=== PATIENT | female | born 2000 | race Caucasian/White ===

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

== ENCOUNTER → 2019-02-11 | Outpatient (CLI) | payer BC ==
--- NOTE | 2019-02-12 01:15 | REP ---
Clinical: Right ankle pain . Technique: AP, lateral, bilateral oblique views. Findings: No acute fracture or dislocation. Skeletal structures and joint spaces are intact and normal. Ankle mortise appears stable. No subcutaneous emphysema or radiodense foreign body. Impression: Normal right ankle radiograph series. Electronically Signed by Jesus Gabriel MD 02/12/2019 01:07 A
== END ==
LOC: M SMT 15:29
PROVIDERS: ATTEND Physician Assistant
DX: M79.671 Pain in right foot (principal)

== ENCOUNTER → 2019-03-09 | Outpatient (CLI) | payer BC ==
[2019-03-09 10:55] LABS: BASO % 0.3 % (0.0-1.0); EOS # 0.1 10^3/uL (0.0-0.50); HEMATOCRIT 38.9 % (36.0-47.0); HEMOGLOBIN 12.4 g/dl (12.0-15.5); LYMPH # 2.2 10^3/uL (1.5-6.5); LYMPH % 27.3 % (24.0-44.0); MEAN CORPUSCULAR HEMOGLOBIN 28.1 pg (27.0-33.0); MEAN CORPUSCULAR HGB CONC 31.9 g/dl (32.0-36.5); MONO # 0.6 10^3/uL (0.0-0.8); MONO % 7.2 % (0.0-5.0); NEUTROPHILS # 5.1 10^3/uL (1.8-7.7); NEUTROPHILS % 63.8 % (36.0-66.0); PLATELET COUNT, AUTOMATED 282 10^3/uL (150-450); RED BLOOD COUNT 4.42 10^6/uL (4.00-5.40)
[2019-03-09 11:09] LABS: ALBUMIN 3.1 GM/DL (3.2-5.2); ALT/SGPT 32 U/L (12-78); BILIRUBIN,TOTAL 0.3 MG/DL (0.2-1.0); BLOOD UREA NITROGEN 9 MG/DL (7-18); CALCIUM LEVEL 8.9 MG/DL (8.5-10.1); CARBON DIOXIDE LEVEL 28 MEQ/L (21-32); CHLORIDE LEVEL 106 MEQ/L (98-107); CHOLESTEROL LEVEL 142 MG/DL (<200); CHOLESTEROL RISK RATIO 2.629 (<5); CREATININE FOR GFR 0.89 MG/DL (0.55-1.30); FREE T4 1.07 NG/DL (0.78-1.33); GLUCOSE, FASTING 98 MG/DL (70-100); HDL CHOLESTEROL 54 MG/DL (>40); LDL CHOLESTEROL 65 MG/DL (<100); NON-HDL-C 88 MG/DL; POTASSIUM SERUM 4.5 MEQ/L (3.5-5.1); SODIUM LEVEL 139 MEQ/L (136-145); TOTAL PROTEIN 6.5 GM/DL (6.4-8.2); TRIGLYCERIDES LEVEL 113 MG/DL (<150)
== END ==
LOC: M SMT 08:11
PROVIDERS: ATTEND Physician Assistant
DX: Z13.29 Encounter for screening for other suspected endocrine disorder (principal)

== ENCOUNTER → 2022-09-17 | Outpatient (CLI) | payer BC ==
[2022-09-17 12:07] LABS: BASO % 0.5 % (0.0-1.0); EOS % 0.5 % (0.0-3.0); HEMATOCRIT 40.3 % (36.0-47.0); HEMOGLOBIN 12.7 g/dl (12.0-15.5); LYMPH # 2.2 10^3/uL (1.5-5.0); LYMPH % 26.9 % (24.0-44.0); MEAN CORPUSCULAR HEMOGLOBIN 28.5 pg (27.0-33.0); MEAN CORPUSCULAR HGB CONC 31.5 g/dl (32.0-36.5); MEAN CORPUSCULAR VOLUME 90.6 fl (80.0-96.0); MONO # 0.5 10^3/uL (0.0-0.8); MONO % 5.9 % (2.0-8.0); NEUTROPHILS # 5.3 10^3/uL (1.5-8.5); NEUTROPHILS % 65.7 % (36.0-66.0); PLATELET COUNT, AUTOMATED 266 10^3/uL (150-450); RED BLOOD COUNT 4.45 10^6/uL (4.00-5.40)
[2022-09-17 12:37] LABS: ALBUMIN 3.5 G/DL (3.2-5.2); ALKALINE PHOSPHATASE 55 U/L (46-116); ALT/SGPT 17 U/L (7.0-40); AST/SGOT 9 U/L (<34); BILIRUBIN,TOTAL 0.6 MG/DL (0.3-1.2); BLOOD UREA NITROGEN 8 MG/DL (9-23); CARBON DIOXIDE LEVEL 28 MMOL/L (20-31); CHLORIDE LEVEL 107 MMOL/L (98-107); CREATININE FOR GFR 0.88 MG/DL (0.55-1.30); FOLLICLE STIMULATING HORMONE 5.8 mIU/ML; FREE T4 1.16 NG/DL (0.89-1.76); GLOMERULAR FILTRATION RATE > 60.0 (>60); GLUCOSE, FASTING 92 MG/DL (60-100); LUTEINIZING HORMONE 5.1 mIU/ML; SODIUM LEVEL 140 MMOL/L (136-145); THYROID STIMULATING HORMONE 1.708 uIU/ML (0.55-4.78); TOTAL PROTEIN 6.7 G/DL (5.7-8.2)
[2022-09-17 12:57] LABS: HEMOGLOBIN A1c 4.9 % (4.0-6.0)
== END ==
LOC: M WUC 10:38
PROVIDERS: ATTEND Nurse Practitioner Adult Health
DX: E28.2 Polycystic ovarian syndrome (principal)

== ENCOUNTER → 2022-12-18 | Outpatient (CLI) | payer BC ==
[2022-12-18 14:27] LABS: HEMATOCRIT 42.7 % (36.0-47.0); HEMOGLOBIN 13.7 g/dl (12.0-15.5); MEAN CORPUSCULAR HEMOGLOBIN 28.5 pg (27.0-33.0); MEAN CORPUSCULAR HGB CONC 32.1 g/dl (32.0-36.5); MEAN CORPUSCULAR VOLUME 88.8 fl (80.0-96.0); PLATELET COUNT, AUTOMATED 257 10^3/uL (150-450); RED BLOOD COUNT 4.81 10^6/uL (4.00-5.40); WHITE BLOOD COUNT 8.2 10^3/uL (4.0-10.0)
[2022-12-18 14:46] LABS: GLUCOSE CHALLENGE TEST 1 HOUR 142 MG/DL (LESS THAN 140)
[2022-12-18 15:13] LABS: HIV 1&2 SCREEN NEGATIVE (NEGATIVE)
[2022-12-18 15:31] LABS: GC DNA AMPLIFICATION NEGATIVE (NEGATIVE)
== END ==
LOC: M PLALAB 08:16
PROVIDERS: ATTEND Obstetrics & Gynecology
DX: Z34.91 Encounter for supervision of normal pregnancy, unspecified, first trimester (principal)

== ENCOUNTER → 2022-12-24 | Outpatient (CLI) | payer BC | LOC: M LAB 07:43 | PROVIDERS: ATTEND Obstetrics & Gynecology | DX: R73.09 Other abnormal glucose (principal) ==

== ENCOUNTER → 2023-01-20 | Outpatient (REF) | payer BC | LOC: M PLALAB 14:05 | PROVIDERS: ATTEND Obstetrics & Gynecology | DX: R82.90 Unspecified abnormal findings in urine (principal) ==

== ENCOUNTER → 2023-03-04 | Outpatient (CLI) | payer BC | LOC: M WHC 07:34 | PROVIDERS: ATTEND Obstetrics & Gynecology | DX: Z34.92 Encounter for supervision of normal pregnancy, unspecified, second trimester (principal) ==

== ENCOUNTER → 2023-04-04 | Outpatient (CLI) | payer BC | LOC: M WHC 09:40 | PROVIDERS: ATTEND Obstetrics & Gynecology | DX: Z34.02 Encounter for supervision of normal first pregnancy, second trimester (principal); Z3A.24 24 weeks gestation of pregnancy ==

== ENCOUNTER → 2023-05-12 | Outpatient (CLI) | payer BC | LOC: M LAB 08:48 | PROVIDERS: ATTEND Obstetrics & Gynecology | DX: R73.09 Other abnormal glucose (principal) ==

== ENCOUNTER → 2023-06-05 | Outpatient (CLI) | payer BC | LOC: M WHC 11:39 | PROVIDERS: ATTEND Obstetrics & Gynecology | DX: O24.415 Gestational diabetes mellitus in pregnancy, controlled by oral hypoglycemic drugs (principal); Z3A.33 33 weeks gestation of pregnancy ==

== ENCOUNTER → 2023-06-19 | Outpatient (REF) | payer BC | LOC: M PLALAB 10:42 | PROVIDERS: ATTEND Obstetrics & Gynecology | DX: Z34.83 Encounter for supervision of other normal pregnancy, third trimester (principal) ==

== ENCOUNTER → 2023-06-19 | Outpatient (CLI) | payer BC | LOC: M RAD 11:27 | PROVIDERS: ATTEND Obstetrics & Gynecology | DX: O24.419 Gestational diabetes mellitus in pregnancy, unspecified control (principal); Z3A.35 35 weeks gestation of pregnancy ==

== ENCOUNTER 2023-07-09 01:41 | Inpatient (IN) | payer BC ==
[~2023-07-09] VITALS: Ht 157.5 cm; Wt 144.0 kg
[2023-07-09] VITALS (49 sets, daily range): BP systolic 99–211; BP diastolic 66–124; O2SAT 98
[2023-07-09 03:05] LABS: MEAN CORPUSCULAR HEMOGLOBIN 27.5 pg (27.0-33.0); MEAN CORPUSCULAR HGB CONC 33.3 g/dl (32.0-36.5); MEAN CORPUSCULAR VOLUME 82.6 fl (80.0-96.0); PLATELET COUNT, AUTOMATED 195 10^3/uL (150-450); RED BLOOD COUNT 4.36 10^6/uL (4.00-5.40); WHITE BLOOD COUNT 9.1 10^3/uL (4.0-10.0)
[2023-07-09] MEDS ORDERED: LACTATED RINGER'S 1000 ML IV STA (05:22)
[2023-07-09] MEDS ORDERED: OXYTOCIN DRIP 30 UNITS in IV 1 EA IV SCH (05:25)
[2023-07-09] MEDS ORDERED: TRANEXAMIC ACID INJection 1,000 MG in NS 100 ML IV PRN (05:25)
[2023-07-09] MEDS ORDERED: CARBOPROST TROMETHAMINE 250 MCG/ML AMP IM PRN (05:25)
[2023-07-09] MEDS ORDERED: LIDOCAINE 1% MDV 20ML VIAL INFIL PRN (05:25)
[2023-07-09] MEDS ORDERED: METHYLERGONOVINE MALEATE 0.2MG/ML 1ML VIAL IM PRN (05:25)
[2023-07-09] MEDS ORDERED: OXYTOCIN DRIP 30 UNITS in IV 1 EA IV PRN (05:25)
[2023-07-09] MEDS: LR 1,000 ML IV SCH ×2 (08:27→15:16)
[2023-07-09] MEDS: metFORMIN (GLUCOPHAGE) 1000MG TABLET PO SCH ×2 (08:33→19:21)
[2023-07-09 11:11] LABS: TOTAL PROTEIN,RANDOM URINE 55.8 MG/DL (0.0-14.0)
[2023-07-09 11:36] LABS: LDH LACTATE DEHYDROGENASE 244 U/L (120-246)
[2023-07-09 11:37] LABS: ALT/SGPT 27 U/L (7.0-40); AST/SGOT 20 U/L (<34); BILIRUBIN,TOTAL 0.2 MG/DL (0.3-1.2); CREATININE FOR GFR 0.76 MG/DL (0.55-1.30); GLOMERULAR FILTRATION RATE > 60.0 (>60)
[2023-07-09 11:39] LABS: URIC ACID 7.4 MG/DL (3.1-7.8)
[2023-07-09] MEDS ORDERED: LR 500 ML IV PRN (11:45)
[2023-07-09] MEDS ORDERED: diphenhydrAMINE 50MG/ML VIAL IV PRN (11:45)
[2023-07-09] MEDS ORDERED: ONDANSETRON 4MG 2ML VIAL IV PRN (11:45)
[2023-07-09] MEDS ORDERED: EPIDURAL/PCA KEYS XX PRN (11:45)
[2023-07-09] MEDS ORDERED: NALOXONE INJ 0.4MG/1ML VIAL IV PRN (11:45)
[2023-07-09] MEDS ORDERED: ePHEDrine SULFATE 25 MG/5 ML(5MG/ML) SYRINGE IVP PRN (11:45)
[2023-07-09] MEDS ORDERED: FENTANYL/ROPIVACAINE/NACL BAG 100 ML EPIDURAL SCH (11:45)
[2023-07-09] MEDS ORDERED: ACETAMINOPHEN TAB 650MG DOSE (2X325MG) PO PRN (19:15)
[2023-07-09] MEDS ORDERED: RHOGAM 300MCG (1500IU) INJ IM SCH (19:15)
[2023-07-09] MEDS ORDERED: METHYLERGONOVINE MALEATE 0.2 MG TAB PO PRN (19:15)
[2023-07-09] MEDS ORDERED: DOCUSATE SODIUM 100MG CAPSULE PO PRN (19:15)
[2023-07-09] MEDS ORDERED: DIBUCAINE 1% OINTMENT 30GM TOP PRN (19:15)
[2023-07-09] MEDS ORDERED: IBUPROFEN 600MG TAB PO PRN (19:15)
[2023-07-10] MEDS: IBUPROFEN 800 MG TAB PO PRN ×3 (01:24→19:47)
[2023-07-10 06:00] VITALS: BP_SYST 126; BP_SYST 144; BP_DIAS 76; BP_DIAS 81; O2SAT 96; O2SAT 97
[2023-07-10] MEDS: PRENATAL VITAMINS CHEWABLE TABLET PO SCH (07:32)
[2023-07-10] MEDS: metFORMIN (GLUCOPHAGE) 1000MG TABLET PO SCH ×2 (07:39→17:13)
[2023-07-10] MEDS: ACETAMINOPHEN 500 MG TAB PO PRN (17:13)
[2023-07-10] MEDS ORDERED: METF10004 PO (17:16)
[2023-07-10] MEDS ORDERED: ALBU8.5H INH (17:16)
[2023-07-10 18:00] VITALS: BP 140/94; O2SAT 100
[2023-07-11] MEDS: IBUPROFEN 800 MG TAB PO PRN (04:16)
[2023-07-11 06:00] VITALS: BP 145/86; O2SAT 99
[2023-07-11] MEDS: metFORMIN (GLUCOPHAGE) 1000MG TABLET PO SCH (08:00)
[2023-07-11] MEDS: PRENATAL VITAMINS CHEWABLE TABLET PO SCH (08:15)
[2023-07-11] MEDS ORDERED: INFLUENZA QUADRIVALENT PF VACCINE 0.5ML SYRINGE IM.IMMUN ONE (09:00)
[2023-07-11] MEDS ORDERED: MEASLES,MUMPS,RUBELLA VACCINE INJ (MMR-II) SC.IMMUN ONE (09:00)
[2023-07-11] MEDS: ACETAMINOPHEN 500 MG TAB PO PRN (09:37)
== END 2023-07-11 12:40 | disposition home or self-care (01) | DRG 560 ==
LOC: M LDO 01:41 → M LDI 02:28 → M OBS 21:20
PROVIDERS: ADMIT Obstetrics & Gynecology; ATTEND Advanced Practice Midwife
PROC: 10E0XZZ Delivery of Products of Conception, External Approach (ICD-10-PCS; principal; 2023-07-09)
PROC: 0HQ9XZZ Repair Perineum Skin, External Approach (ICD-10-PCS; 2023-07-09)
DX: O42.02 Full-term premature rupture of membranes, onset of labor within 24 hours of rupture (principal); O24.425 Gestational diabetes mellitus in childbirth, controlled by oral hypoglycemic drugs; Z37.0 Single live birth; Z3A.38 38 weeks gestation of pregnancy; O69.81X0 Labor and delivery complicated by cord around neck, without compression, not applicable or unspecified; O70.0 First degree perineal laceration during delivery

== ENCOUNTER → 2023-11-20 | Outpatient (REF) | payer BC ==
[~2023-11-20] MED LIST: ALBU8.5H INH; METF10004 PO
== END ==
LOC: M SFHCWAGY 15:18
PROVIDERS: ATTEND Nurse Practitioner Family
DX: Z12.4 Encounter for screening for malignant neoplasm of cervix (principal); R87.612 Low grade squamous intraepithelial lesion on cytologic smear of cervix (LGSIL)

== ENCOUNTER → 2024-01-02 | Outpatient (CLI) | payer BC | LOC: M PLAIMG 14:03 | PROVIDERS: ATTEND Nurse Practitioner Adult Health | DX: R10.13 Epigastric pain (principal) ==

== ENCOUNTER 2024-05-03 13:03 | Emergency (ER) | payer BC ==
[~2024-05-03] VITALS: Ht 157.5 cm; Wt 139.0 kg
[2024-05-03 13:15] VITALS: BP 135/84; TEMP 98.5; O2SAT 98
[2024-05-03 15:14] LABS: HCG, SERUM QUALITATIVE POSITIVE (NEGATIVE)
== END 2024-05-03 15:24 | disposition home or self-care (01) ==
LOC: M ED 13:03
DX: Z34.92 Encounter for supervision of normal pregnancy, unspecified, second trimester (principal); Z3A.20 20 weeks gestation of pregnancy; F10.10 Alcohol abuse, uncomplicated; Z79.51 Long term (current) use of inhaled steroids

== ENCOUNTER → 2024-05-05 | Outpatient (CLI) | payer BC ==
[2024-05-05 15:35] LABS: HEMATOCRIT 40.4 % (36.0-47.0); HEMOGLOBIN 12.8 g/dl (12.0-15.5); MEAN CORPUSCULAR HEMOGLOBIN 27.5 pg (27.0-33.0); MEAN CORPUSCULAR HGB CONC 31.7 g/dl (32.0-36.5); MEAN CORPUSCULAR VOLUME 86.7 fl (80.0-96.0); PLATELET COUNT, AUTOMATED 288 10^3/uL (150-450); RED BLOOD COUNT 4.66 10^6/uL (4.00-5.40); WHITE BLOOD COUNT 12.7 10^3/uL (4.0-10.0)
[2024-05-05 16:05] LABS: CREATININE,RANDOM URINE 172.8 MG/DL
[2024-05-05 16:07] LABS: ALBUMIN 2.9 G/DL (3.2-5.2); ALKALINE PHOSPHATASE 78 U/L (46-116); ALT/SGPT 11 U/L (7.0-40); AST/SGOT < 8 U/L (<34); BILIRUBIN,TOTAL 0.3 MG/DL (0.3-1.2); BLOOD UREA NITROGEN 5 MG/DL (9-23); CALCIUM LEVEL 9.6 MG/DL (8.5-10.1); CARBON DIOXIDE LEVEL 26 MMOL/L (20-31); CHLORIDE LEVEL 106 MMOL/L (98-107); CREATININE FOR GFR 0.63 MG/DL (0.55-1.30); GLOMERULAR FILTRATION RATE > 60.0 (>60); GLUCOSE, FASTING 59 MG/DL (60-100); POTASSIUM SERUM 4.5 MMOL/L (3.5-5.1); SODIUM LEVEL 138 MMOL/L (136-145); TOTAL PROTEIN 6.9 G/DL (5.7-8.2)
[2024-05-05 16:36] LABS: HIV 1&2 SCREEN NEGATIVE (NEGATIVE)
[2024-05-05 16:44] LABS: HEPATITIS C VIRUS ABY INDEX 0.03 INDEX (<0.8)
[2024-05-05 16:52] LABS: GC DNA AMPLIFICATION NEGATIVE (NEGATIVE)
== END ==
LOC: M PLALAB 13:39
PROVIDERS: ATTEND Obstetrics & Gynecology
DX: Z34.92 Encounter for supervision of normal pregnancy, unspecified, second trimester (principal)

== ENCOUNTER → 2024-05-14 | Outpatient (CLI) | payer BC | LOC: M PLALAB 09:27 | PROVIDERS: ATTEND Obstetrics & Gynecology | DX: Z34.92 Encounter for supervision of normal pregnancy, unspecified, second trimester (principal) ==

== ENCOUNTER → 2024-05-14 | Outpatient (CLI) | payer BC | LOC: M RAD 16:06 | PROVIDERS: ATTEND Obstetrics & Gynecology | DX: Z36.2 Encounter for other antenatal screening follow-up (principal) ==

== ENCOUNTER → 2024-05-31 | Outpatient (REF) | payer BC | LOC: M SFHCWAGY 13:08 | PROVIDERS: ATTEND Obstetrics & Gynecology | DX: Z34.92 Encounter for supervision of normal pregnancy, unspecified, second trimester (principal) ==

== ENCOUNTER → 2024-06-25 | Outpatient (CLI) | payer BC | LOC: M WHC 15:13 | PROVIDERS: ATTEND Obstetrics & Gynecology | DX: Z34.92 Encounter for supervision of normal pregnancy, unspecified, second trimester (principal); Z3A.28 28 weeks gestation of pregnancy ==

== ENCOUNTER 2024-07-14 09:30 | Emergency (ER) | payer BC ==
[~2024-07-14] VITALS: Ht 157.5 cm; Wt 140.9 kg
[2024-07-14] MEDS ORDERED: MULTTAB20 PO (09:42)
[2024-07-14 12:50] LABS: BASO % 0.1 % (0.0-1.0); EOS % 0.4 % (0.0-3.0); HEMATOCRIT 34.7 % (36.0-47.0); HEMOGLOBIN 11.5 g/dl (12.0-15.5); LYMPH # 1.9 10^3/uL (1.5-5.0); LYMPH % 18.1 % (24.0-44.0); MEAN CORPUSCULAR HGB CONC 33.1 g/dl (32.0-36.5); MEAN CORPUSCULAR VOLUME 84.6 fl (80.0-96.0); MONO # 0.5 10^3/uL (0.0-0.8); MONO % 5.1 % (2.0-8.0); NEUTROPHILS # 7.9 10^3/uL (1.5-8.5); NEUTROPHILS % 75.8 % (36.0-66.0); PLATELET COUNT, AUTOMATED 276 10^3/uL (150-450); WHITE BLOOD COUNT 10.5 10^3/uL (4.0-10.0)
[2024-07-14 13:07] LABS: D-DIMER QUANT 0.71 ug/mL (<0.5); INR 0.94; PROTHROMBIN TIME 12.9 SECONDS (12.5-14.5)
[2024-07-14 13:13] LABS: BLOOD UREA NITROGEN 6 MG/DL (9-23); CALCIUM LEVEL 9.3 MG/DL (8.5-10.1); CARBON DIOXIDE LEVEL 24 MMOL/L (20-31); CHLORIDE LEVEL 106 MMOL/L (98-107); CPK CREATINE PHOSPHOKINASE 52 U/L (34-145); CREATININE FOR GFR 0.59 MG/DL (0.55-1.30); GLOMERULAR FILTRATION RATE > 60.0 (>60); GLUCOSE, FASTING 77 MG/DL (60-100); MAGNESIUM LEVEL 1.7 MG/DL (1.8-2.4); POTASSIUM SERUM 4.2 MMOL/L (3.5-5.1); SODIUM LEVEL 139 MMOL/L (136-145)
[2024-07-14 13:15] LABS: CK-MB VALUE MASS < 1.0 NG/ML (<3.6); MB/CK RELATIVE INDEX 1.92 (< OR =4)
[2024-07-14 13:19] LABS: THYROID STIMULATING HORMONE 2.404 uIU/ML (0.55-4.78)
[2024-07-14 13:21] LABS: FREE T4 0.88 NG/DL (0.89-1.76)
[2024-07-14] MEDS ORDERED: HOME MED LIST COMPLETE! XX SCH (14:00)
[2024-07-14 16:07] VITALS: BP 126/85; TEMP 97.7; O2SAT 98
== END 2024-07-14 16:16 | disposition home or self-care (01) ==
LOC: M ED 09:30
DX: O26.893 Other specified pregnancy related conditions, third trimester (principal); I49.9 Cardiac arrhythmia, unspecified; J45.909 Unspecified asthma, uncomplicated; Z3A.31 31 weeks gestation of pregnancy; Z79.52 Long term (current) use of systemic steroids; Z79.899 Other long term (current) drug therapy

== ENCOUNTER 2024-08-07 12:48 | Outpatient (CLI) | payer BC ==
[~2024-08-07] VITALS: Ht 157.5 cm; Wt 141.5 kg
[~2024-08-07 12:48] MED LIST changes: +MULTTAB20 PO
[2024-08-07] MEDS ORDERED: OMEP40CA4 PO (13:07)
[2024-08-07 13:10] VITALS: BP 122/70
[2024-08-07 15:22] VITALS: BP 111/68
[2024-08-07] MEDS ORDERED: METF500T13 PO (15:26)
[2024-08-07 15:57] LABS: HEMOGLOBIN A1c 5.6 % (4.0-6.0)
== END 2024-08-07 15:46 | disposition home or self-care (01) ==
LOC: M LDO 12:48
PROVIDERS: ATTEND Obstetrics & Gynecology
DX: O24.415 Gestational diabetes mellitus in pregnancy, controlled by oral hypoglycemic drugs (principal); O99.213 Obesity complicating pregnancy, third trimester; O09.893 Supervision of other high risk pregnancies, third trimester; O09.33 Supervision of pregnancy with insufficient antenatal care, third trimester; E66.01 Morbid (severe) obesity due to excess calories; Z3A.34 34 weeks gestation of pregnancy
CPT/HCPCS: 36415; 59025; 76815; 83036; G0463

== ENCOUNTER → 2024-08-09 | Outpatient (CLI) | payer BC ==
[~2024-08-09] MED LIST changes: +METF500T13 PO; +OMEP40CA4 PO
== END ==
LOC: M RAD 09:04
PROVIDERS: ATTEND Obstetrics & Gynecology
DX: O24.419 Gestational diabetes mellitus in pregnancy, unspecified control (principal)

== ENCOUNTER → 2024-08-16 | Outpatient (REF) | payer BC | LOC: M SFHCWAGY 10:04 | PROVIDERS: ATTEND Obstetrics & Gynecology | DX: O24.415 Gestational diabetes mellitus in pregnancy, controlled by oral hypoglycemic drugs (principal); O09.893 Supervision of other high risk pregnancies, third trimester; O09.33 Supervision of pregnancy with insufficient antenatal care, third trimester; O99.213 Obesity complicating pregnancy, third trimester; E66.01 Morbid (severe) obesity due to excess calories; O99.513 Diseases of the respiratory system complicating pregnancy, third trimester; J45.909 Unspecified asthma, uncomplicated; Z3A.35 35 weeks gestation of pregnancy ==

== ENCOUNTER → 2024-08-23 | Outpatient (CLI) | payer BC | LOC: M WHC 09:56 | PROVIDERS: ATTEND Advanced Practice Midwife | DX: O13.1 Gestational [pregnancy-induced] hypertension without significant proteinuria, first trimester (principal) ==

== ENCOUNTER 2024-08-26 09:02 | Outpatient (CLI) | payer BC ==
[~2024-08-26] VITALS: Ht 157.5 cm; Wt 143.1 kg
[2024-08-26 09:18] VITALS: BP 138/83
== END 2024-08-26 10:09 | disposition home or self-care (01) ==
LOC: M LDO 09:02
PROVIDERS: ATTEND Advanced Practice Midwife
DX: O26.893 Other specified pregnancy related conditions, third trimester (principal); O24.415 Gestational diabetes mellitus in pregnancy, controlled by oral hypoglycemic drugs; O99.213 Obesity complicating pregnancy, third trimester; O09.893 Supervision of other high risk pregnancies, third trimester; O09.33 Supervision of pregnancy with insufficient antenatal care, third trimester; O99.513 Diseases of the respiratory system complicating pregnancy, third trimester; N89.8 Other specified noninflammatory disorders of vagina; E66.01 Morbid (severe) obesity due to excess calories; J45.909 Unspecified asthma, uncomplicated; Z3A.37 37 weeks gestation of pregnancy
CPT/HCPCS: 59025; G0463

== ENCOUNTER 2024-08-27 00:51 | Inpatient (IN) | payer BC ==
[~2024-08-27] VITALS: Ht 157.5 cm; Wt 145.0 kg
[2024-08-27] VITALS (29 sets, daily range): BP systolic 106–161; BP diastolic 54–108; TEMP 98; O2SAT 97–98
[2024-08-27] MEDS ORDERED: HOME MED LIST COMPLETE! XX SCH (01:25)
[2024-08-27] MEDS ORDERED: OXYTOCIN INJ 10UNITS/ML 1ML VIAL IM PRN (01:55)
[2024-08-27] MEDS ORDERED: LIDOCAINE 1% MDV 20ML VIAL INFIL PRN (01:55)
[2024-08-27] MEDS ORDERED: METHYLERGONOVINE MALEATE 0.2MG/ML 1ML VIAL IM PRN (01:55)
[2024-08-27] MEDS ORDERED: TRANEXAMIC ACID INJection 1,000 MG in NS 100 ML IV PRN (01:55)
[2024-08-27] MEDS ORDERED: CARBOPROST TROMETHAMINE 250 MCG/ML AMP IM PRN (01:55)
[2024-08-27] MEDS ORDERED: OXYTOCIN DRIP 30 UNITS in IV 1 EA IV PRN (01:55)
[2024-08-27 02:27] LABS: HEMATOCRIT 34.5 % (36.0-47.0); MEAN CORPUSCULAR HEMOGLOBIN 26.2 pg (27.0-33.0); MEAN CORPUSCULAR HGB CONC 31.9 g/dl (32.0-36.5); MEAN CORPUSCULAR VOLUME 82.1 fl (80.0-96.0); PLATELET COUNT, AUTOMATED 266 10^3/uL (150-450); WHITE BLOOD COUNT 11.5 10^3/uL (4.0-10.0)
[2024-08-27] MEDS ORDERED: ONDANSETRON 4MG 2ML VIAL IV PRN ×2 (03:25→08:30)
[2024-08-27] MEDS ORDERED: diphenhydrAMINE 50MG/ML VIAL IV PRN (03:25)
[2024-08-27] MEDS ORDERED: ePHEDrine SULFATE 25 MG/5 ML(5MG/ML) SYRINGE IVP PRN (03:25)
[2024-08-27] MEDS ORDERED: EPIDURAL/PCA KEYS XX PRN (03:25)
[2024-08-27] MEDS ORDERED: NALOXONE INJ 0.4MG/1ML VIAL IV PRN (03:25)
[2024-08-27] MEDS ORDERED: LR 500 ML IV PRN (03:25)
[2024-08-27] MEDS: LR 1,000 ML IV SCH ×2 (03:48→08:30)
[2024-08-27] MEDS: LACTATED RINGER'S 1000 ML IV STA (03:48)
[2024-08-27] MEDS: FENTANYL/ROPIVACAINE/NACL BAG 100 ML EPIDURAL SCH (04:04)
[2024-08-27 04:33] LABS: HIV 1&2 SCREEN NEGATIVE (NEGATIVE)
[2024-08-27 04:41] LABS: HEPATITIS C VIRUS ABY INDEX < 0.02 INDEX (<0.8)
[2024-08-27] MEDS ORDERED: OXYTOCIN DRIP 30 UNITS in IV 1 EA IV SCH (07:50)
[2024-08-27] MEDS: OXYTOCIN DRIP 30 UNITS in IV 1 EA IV PRN (08:09)
[2024-08-27] MEDS ORDERED: ACETAMINOPHEN 325 MG TAB PO PRN (08:30)
[2024-08-27] MEDS ORDERED: IBUPROFEN 800 MG TAB PO PRN (08:30)
[2024-08-27] MEDS ORDERED: IBUPROFEN 600MG TAB PO PRN (08:30)
[2024-08-27] MEDS ORDERED: ANUSOL HC CREAM 30GM TOP PRN (08:30)
[2024-08-27] MEDS ORDERED: RHOGAM 300MCG (1500IU) INJ IM SCH (08:30)
[2024-08-27] MEDS: OXYTOCIN DRIP 30 UNITS in IV 1 EA IV SCH (08:30)
[2024-08-27] MEDS ORDERED: DIBUCAINE 1% OINTMENT 30GM TOP PRN (08:30)
[2024-08-27] MEDS: PRENATAL VITAMINS CHEWABLE TABLET PO SCH (09:00)
[2024-08-27] MEDS: ACETAMINOPHEN 500 MG TAB PO PRN (15:13)
[2024-08-27] MEDS: DOCUSATE SODIUM 100MG CAPSULE PO PRN (19:48)
[2024-08-28 06:00] VITALS: BP 125/77; O2SAT 98
[2024-08-29] MEDS ORDERED: MEASLES,MUMPS,RUBELLA VACCINE INJ (MMR-II) SC.IMMUN ONE (09:00)
== END 2024-08-28 14:05 | disposition home or self-care (01) | DRG 560 ==
LOC: M LDO 00:51 → M LDI 01:55 → M OBS 10:24
PROVIDERS: ADMIT Advanced Practice Midwife; ATTEND Advanced Practice Midwife
PROC: 10E0XZZ Delivery of Products of Conception, External Approach (ICD-10-PCS; principal; 2024-08-27)
DX: O24.429 Gestational diabetes mellitus in childbirth, unspecified control (principal); Z68.43 Body mass index [BMI] 50.0-59.9, adult; E66.01 Morbid (severe) obesity due to excess calories; Z37.0 Single live birth; Z3A.37 37 weeks gestation of pregnancy; O99.214 Obesity complicating childbirth

== ENCOUNTER 2025-04-10 12:55 | Emergency (ER) | payer BC, MEDICAID ==
[~2025-04-10] VITALS: Ht 157.5 cm; Wt 147.7 kg
[2025-04-10] MEDS: ONDANSETRON 4MG 2ML VIAL IV ONE (14:16)
[2025-04-10] MEDS: diphenhydrAMINE 50 MG/ML VIAL IV STA (15:10)
[2025-04-10] MEDS: NS (Normal Saline) 0.9% 1,000 ML IV ONE (15:11)
[2025-04-10] MEDS: KETOROLAC 30 MG/ML 1 ML VIAL IV ONE (15:11)
[2025-04-10 15:15] LABS: BASO # 0.0 10^3/uL (0.0-0.2); BASO % 0.3 % (0.0-1.0); EOS # 0.0 10^3/uL (0.0-0.5); EOS % 0.0 % (0.0-3.0); LYMPH # 0.9 10^3/uL (1.5-5.0); LYMPH % 9.2 % (24.0-44.0); MONO # 0.4 10^3/uL (0.0-0.8); MONO % 3.5 % (2.0-8.0); NEUTROPHILS # 8.7 10^3/uL (1.5-8.5); NEUTROPHILS % 86.6 % (36.0-66.0); PLATELET COUNT, AUTOMATED 260 10^3/uL (150-450)
[2025-04-10 15:35] LABS: HCG, SERUM QUALITATIVE NEGATIVE (NEGATIVE)
[2025-04-10 15:44] LABS: ALT/SGPT 25 U/L (7.0-40); AST/SGOT 18 U/L (<34); CALCIUM LEVEL 8.8 MG/DL (8.5-10.1); CARBON DIOXIDE LEVEL 24 MMOL/L (20-31); CHLORIDE LEVEL 103 MMOL/L (98-107); CREATININE FOR GFR 0.82 MG/DL (0.55-1.30); GLOMERULAR FILTRATION RATE > 90.0 (>60); MAGNESIUM LEVEL 2.1 MG/DL (1.8-2.4); POTASSIUM SERUM 4.6 MMOL/L (3.5-5.1); SODIUM LEVEL 139 MMOL/L (136-145)
[2025-04-10 15:45] LABS: FREE T4 0.96 NG/DL (0.89-1.76)
[2025-04-10] MEDS ORDERED: KETO-204 PO (17:00)
[2025-04-10 17:15] VITALS: BP 122/70; TEMP 99.4; O2SAT 98
== END 2025-04-10 17:35 | disposition home or self-care (01) ==
LOC: M ED 12:55
DX: R51.9 Headache, unspecified (principal); D35.4 Benign neoplasm of pineal gland; Z79.52 Long term (current) use of systemic steroids; Z79.899 Other long term (current) drug therapy
CPT/HCPCS: 70450; 80053; 83690; 83735; 84439; 84443; 84703; 85025; 87486; 87581; 87633; 87798; 96361; 96374; 96375; 99284; J1200; J1885; J2405; J2765